=== PATIENT | male | born 1980 | race Caucasian/White ===

== ENCOUNTER → 2018-11-24 | Day surgery (SDC) | payer OTHER ==
[2018-11-23 13:12] VITALS: BMI 30.7
[2018-11-24 08:53] LABS: BASO % 0.9 % (0-2.0); EOS % 2.7 % (0-4.5); HEMATOCRIT 45.9 % (35.4-49); LYMPH % 19.3 % (8-40); MCH 32.4 pg (25.7-33.7); MCHC 34.9 g/dl (32.0-35.9); MEAN PLT VOLUME 8.2 fl (7.5-11.1); MONO % 12.3 % (3.8-10.2); NEUT % 64.8 % (42.8-82.8); PLATELET COUNT 176 K/MM3 (134-434); RBC 4.94 M/mm3 (4.00-5.60); RDW 13.7 % (11.9-15.9); WHITE BLOOD COUNT 5.2 K/mm3 (4.0-10.0)
[2018-11-24 09:05] LABS: INR 1.04 (0.83-1.09); PROTHROMBIN TIME (PATIENT) 12.3 SEC (9.7-13.0)
[2018-11-24 11:35] VITALS: TEMP 97.6
[2018-11-24 12:42] VITALS: BP 146/82; PULSE 80
--- NOTE | 2018-12-04 12:17 | PATH ---
Surgical Pathology Report Patient Name: MARGARITA VILLALOBOS [facility]. Rec. #: [id number] /Age/Gender: 1980 (Age: 38) / M Account: [id number] Location: RADIOLOGY INTER Taken: 11/24/2018 Received: 11/24/2018 Reported: 12/04/2018 Physicians: Luis Manuel Olsen M.D. Specimen(s) Received RIGHT GROIN LYMPH NODE ALSO RECEIVED TISSUE IN RPMI Clinical History 38-year-old male with retroperitoneal and inguinal adenopathy Final Diagnosis LYMPH NODE, RIGHT GROIN, NEEDLE BIOPSY: - BENIGN LYMPH NODE WITH EXTENDED SINUSES AND SINUS HISTOCYTOSIS. NO EVIDENCE OF MALIGNANCY IN THE SECTIONS EXAMINED. Comment: The biopsy is small. There is no cytologic atypia or immunophenotypic abnormality. The findings correlate with the result of flow cytometry. FLOW CYTOMETRY [place]NALYS[place] shows NO IMMUNOPHENOTYPIC EVIDENCE OF A CLONAL B CELL POPULATION. Comment: Because of the low viability and low cell yield, only a limited antibody panel was performed. Clinical and morphologic correlation will be necessary for a complete interpretation. PHENOTYPE: The CD19 and CD20 positive B-cells are 43% of total cells. They are polyclonal without coexpression of CD5 and CD10. The CD3 positive T-cells are 50% of total cells. CD13/33+ granulocytes/monocytes/histiocytes are 5% of total cells. MORPHOLOGY: Cytospin: Rare degenerated cells. See [facility] reports (Specimen #: [id number]) for additional details. Electronically Signed Hilton Acosta M.D. Gross Description Received in formalin labeled "right groin lymph node," are 4 mercer, cylindrical portions of soft tissue ranging from 0.1-0.5 cm in length and averaging 0.1 cm in diameter. The specimens are submitted in toto in one cassette. There is additional tissue received in RPMI solution which is sent for flow cytometry. 11/24/201811/24/2018
== END | disposition home or self-care (01) ==
LOC: JRADIR 08:11
PROVIDERS: ATTEND Internal Medicine Hematology & Oncology
PROC: 07D Lymphatic and Hemic Systems, Extraction (ICD-10-PCS; principal; 2018-11-24)
DX: R59.0 Localized enlarged lymph nodes (principal)
CPT/HCPCS: 36415; 76942-TC; 85025; 85610; 87899; 88305-TC

== ENCOUNTER 2024-10-04 08:55 | Emergency (ER) | payer OTHER ==
[2024-10-04 09:09] VITALS: TEMP 98.2; BMI 30.9
[2024-10-04 10:36] LABS: PH,URINE 5.5 (5.0-8.0); URINE APPEARANCE CLEAR; URINE BILIRUBIN NEGATIVE (NEGATIVE); URINE COLOR YELLOW; URINE GLUCOSE (UA) NEGATIVE (NEGATIVE); URINE KETONE TRACE (NEGATIVE); URINE LEUK ESTERASE NEGATIVE (NEGATIVE); URINE NITRITE NEGATIVE (NEGATIVE); URINE PROTEIN TRACE (NEGATIVE)
[2024-10-04] MEDS ORDERED: KETOROLAC TROMETHAMINE 30 MG/1 ML VIAL ONE (11:13)
[2024-10-04] MEDS: SODIUM CHLORIDE 0.9% 1000 ML INFUS.BAG IV ONE (11:17)
[2024-10-04] MEDS: KETOROLAC TROMETHAMINE 30 MG/1 ML VIAL IVPUSH ONE (11:17)
[2024-10-04 11:34] LABS: HEMATOCRIT 48.2 % (35.4-49); HEMOGLOBIN 16.6 GM/dL (11.7-16.9); MCH 31.3 pg (25.7-33.7); MCHC 34.4 g/dl (32.0-35.9); MEAN PLT VOLUME 8.2 fl (7.5-11.1); PLATELET COUNT 233 10^3/uL (134-434); RDW 13.1 % (11.9-15.9); WHITE BLOOD COUNT 6.1 K/mm3 (4.0-10.0)
[2024-10-04 11:45] LABS: BLOOD UREA NITROGEN 22.1 mg/dL (7-18); CALCIUM 9.8 mg/dL (8.5-10.1)
[2024-10-04 11:48] LABS: CREATININE 0.8 mg/dL (0.55-1.3)
[2024-10-04 11:50] LABS: BILIRUBIN,TOTAL 0.5 mg/dL (0.2-1); TOT PROT 8.3 g/dl (6.4-8.2)
[2024-10-04 11:52] LABS: INR 1.09 (0.83-1.09); PROTHROMBIN TIME (PATIENT) 12.5 SEC (9.7-13.0)
[2024-10-04 12:38] LABS: HIV INTERPRETATION NEGATIVE (NEGATIVE)
[2024-10-04] MEDS ORDERED: LIDOCAINE 5% TOPICAL PATCH ONE (14:05)
[2024-10-04] MEDS: LIDOCAINE 5% TOPICAL PATCH TP ONE (14:06)
[2024-10-04 14:13] VITALS: BP 125/92; PULSE 82; RESP 17
[2024-10-04] MEDS ORDERED: LIDOCAINE PATCH REMOVAL MC ONE (22:00)
== END 2024-10-04 14:39 | disposition home or self-care (01) ==
LOC: JER 08:55
PROC: 3E0333Z Introduction of Anti-inflammatory into Peripheral Vein, Percutaneous Approach (ICD-10-PCS; principal; 2024-10-04)
DX: M54.50 Low back pain, unspecified (principal)
CPT/HCPCS: 36415; 74176-TC; 80053; 81003; 83690; 85027; 85610; 86803; 87086; 87389; 99284-25